=== PATIENT | female | born 1945 | race Caucasian/White ===

== ENCOUNTER 2023-06-04 16:46 | Inpatient (IN) | payer MEDICARE ==
[~2023-06-04] VITALS: Ht 154.9 cm; Wt 49.0 kg
[2023-06-04] MEDS ORDERED: SIMETHICONE PO (17:11)
[2023-06-04] MEDS ORDERED: PARO10TA86 PO (17:11)
[2023-06-04] MEDS ORDERED: NAPR-1164 PO (17:11)
[2023-06-04] MEDS ORDERED: VALS80TA2 PO (17:11)
[2023-06-04] MEDS ORDERED: MELA1TAB23 SL (17:11)
[2023-06-04] MEDS ORDERED: CLON0.5T4 PO (17:11)
[2023-06-04 17:13] LABS: BASOPHILS # (AUTO) 0.1 K/UL (0.0-0.2); BASOPHILS % (AUTO) 1.5 % (0.0-2.0); EOSINOPHILS # (AUTO) 0.1 K/uL (0.0-0.7); EOSINOPHILS % (AUTO) 0.7 % (0.0-7.0); HEMATOCRIT 46.5 % (31.2-41.9); HEMOGLOBIN 15.6 g/dL (10.9-14.3); LYMPHOCYTES # (AUTO) 1.4 K/uL (0.8-4.8); LYMPHOCYTES % (AUTO) 14.8 % (20.5-51.5); MEAN CORPUSCULAR HEMOGLOBIN 29.5 uug (24.7-32.8); MEAN CORPUSCULAR HGB CONC 34 g/dL (32.3-35.6); MONOCYTES # (AUTO) 0.8 K/uL (0.1-1.30); MONOCYTES % (AUTO) 7.9 % (0.0-11.0); NEUTROPHILS # (AUTO) 7.4 K/uL (1.8-8.9); NEUTROPHILS % (AUTO) 75.1 % (38.5-71.5); PLATELET COUNT (AUTO) 341 K/uL (179-408); RED BLOOD CELL COUNT(AUTO) 5.29 MIL/uL (3.63-4.92); RED CELL DISTRIBUTION WIDTH 14.5 % (12.3-17.7); WHITE BLOOD COUNT (AUTO) 9.8 K/uL (3.8-11.8)
[2023-06-04 17:18] LABS: DIFFERENTIAL COMMENT 1
[2023-06-04 17:22] LABS: CALCIUM 9.7 mg/dL (8.5-10.1); CARBON DIOXIDE 27 mmol/L (21-32); CHLORIDE 96 mmol/L (98-107); CREATININE 0.7 mg/dL (0.6-1.3); GLUCOSE 91 mg/dL (74-106); POTASSIUM 3.8 mmol/L (3.5-5.1); SODIUM SERUM 133 mmol/L (136-145); UREA NITROGEN, BLOOD 16 mg/dL (7-18)
[2023-06-04 17:30] LABS: ETHANOL < 3 MG/DL (0-10)
[2023-06-04 17:34] LABS: ALANINE AMINOTRANSFERASE 15 U/L (14-59); ALBUMIN 4.1 g/dL (3.4-5.0); ALKALINE PHOSPHATASE 66 U/L (50-136); ASPARTATE AMINOTRANSFERASE 18 U/L (15-37); BILIRUBIN,DIRECT 0.1 mg/dL (0.0-0.2); BILIRUBIN,TOTAL 0.5 mg/dL (0.2-1.0); TOTAL PROTEIN, SERUM 7.2 g/dL (6.4-8.2)
[2023-06-04 17:35] LABS: ACETAMINOPHEN < 2.0 ug/mL (10-30)
[2023-06-04 23:30] VITALS: BP 113/56; TEMP 98; O2SAT 98
[2023-06-05] MEDS ORDERED: MAGNESIUM HYDROXIDE 30 ML LIQUID UDC PO PRN (00:30)
[2023-06-05] MEDS ORDERED: MAG HYDROX/AL HYDROX/SIMETH 30 ML LIQUID UDC PO PRN (00:30)
[2023-06-05] MEDS ORDERED: LORAZEPAM 1 MG TABLET PO PRN (00:30)
[2023-06-05 08:36] VITALS: BP 106/58; TEMP 98; O2SAT 99
[2023-06-05] MEDS ORDERED: CLONAZEPAM 0.5 MG TABLET PO SCH (09:00)
[2023-06-05] MEDS: VALSARTAN 80 MG TABLET PO SCH ×2 (09:00→17:58)
[2023-06-05] MEDS: SERTRALINE HCL 50 MG TABLET PO SCH (10:30)
[2023-06-05] MEDS: NAPROXEN 500 MG TABLET PO SCH ×2 (10:33→18:10)
[2023-06-05 15:45] VITALS: BP 120/52; TEMP 98; O2SAT 98
[2023-06-05 20:03] VITALS: BP 114/48; TEMP 98.1; O2SAT 96
[2023-06-05] MEDS: DONEPEZIL 5 MG TABLET PO SCH (20:55)
[2023-06-05] MEDS: MEMANTINE HCL 5 MG TABLET PO SCH (20:55)
[2023-06-06 07:56] VITALS: BP 124/56; TEMP 98.2; O2SAT 98
[2023-06-06] MEDS: MEMANTINE HCL 5 MG TABLET PO SCH ×2 (10:03→20:25)
[2023-06-06] MEDS: SERTRALINE HCL 50 MG TABLET PO SCH (10:05)
[2023-06-06] MEDS: VALSARTAN 80 MG TABLET PO SCH (10:06)
[2023-06-06] MEDS: NAPROXEN 500 MG TABLET PO SCH ×2 (10:07→16:54)
[2023-06-06] MEDS: ACETAMINOPHEN 325 MG TABLET PO PRN (12:44)
[2023-06-06 15:14] VITALS: BP 131/61; TEMP 98.2; O2SAT 97
[2023-06-06 16:51] LABS: THYROID STIMULATING HORMONE 0.429 mIU/mL (0.358-3.740)
[2023-06-06 20:09] VITALS: BP 101/71; TEMP 98.1; O2SAT 98
[2023-06-06] MEDS: DONEPEZIL 5 MG TABLET PO SCH (20:25)
[2023-06-06] MEDS: TEMAZEPAM 7.5 MG CAPSULE PO PRN (22:38)
[2023-06-07] MEDS: CLONAZEPAM 0.5 MG TABLET PO PRN ×2 (00:31→12:49)
[2023-06-07 08:44] VITALS: BP 123/55; TEMP 98; O2SAT 96
[2023-06-07] MEDS: SERTRALINE HCL 50 MG TABLET PO SCH (09:07)
[2023-06-07] MEDS: NAPROXEN 500 MG TABLET PO SCH ×2 (09:08→16:04)
[2023-06-07] MEDS: MEMANTINE HCL 5 MG TABLET PO SCH ×2 (09:08→19:59)
[2023-06-07] MEDS: VALSARTAN 80 MG TABLET PO SCH (09:09)
[2023-06-07 15:15] VITALS: BP 135/63; TEMP 97.8; O2SAT 95
[2023-06-07] MEDS: ACETAMINOPHEN 325 MG TABLET PO PRN (19:59)
[2023-06-07] MEDS: DONEPEZIL 5 MG TABLET PO SCH (19:59)
[2023-06-07 20:33] VITALS: BP 130/55; TEMP 97.6; O2SAT 96
[2023-06-07] MEDS: TEMAZEPAM 7.5 MG CAPSULE PO PRN (21:19)
[2023-06-08 08:03] VITALS: BP 132/52; TEMP 97.7; O2SAT 99
[2023-06-08] MEDS: NAPROXEN 500 MG TABLET PO SCH ×2 (08:09→17:17)
[2023-06-08] MEDS: SERTRALINE HCL 50 MG TABLET PO SCH (08:10)
[2023-06-08] MEDS: MEMANTINE HCL 5 MG TABLET PO SCH ×2 (08:12→20:50)
[2023-06-08] MEDS: VALSARTAN 80 MG TABLET PO SCH (08:13)
[2023-06-08] MEDS: ACETAMINOPHEN 325 MG TABLET PO PRN ×2 (13:29→20:51)
[2023-06-08 16:19] VITALS: BP 156/83; TEMP 98; O2SAT 98
[2023-06-08 20:00] VITALS: BP 122/55; TEMP 97.9; O2SAT 98
[2023-06-08] MEDS: CLONAZEPAM 0.5 MG TABLET PO PRN (20:50)
[2023-06-08] MEDS: DONEPEZIL 5 MG TABLET PO SCH (20:51)
[2023-06-09] MEDS: NAPROXEN 500 MG TABLET PO SCH ×2 (08:17→16:48)
[2023-06-09] MEDS: MEMANTINE HCL 5 MG TABLET PO SCH ×2 (08:18→21:21)
[2023-06-09] MEDS: SERTRALINE HCL 50 MG TABLET PO SCH (08:18)
[2023-06-09] MEDS: VALSARTAN 80 MG TABLET PO SCH (08:19)
[2023-06-09 08:27] VITALS: BP 168/77; TEMP 98.1; O2SAT 98
[2023-06-09] MEDS: CLONAZEPAM 0.5 MG TABLET PO PRN (11:23)
[2023-06-09 16:48] VITALS: BP 136/71; TEMP 98; O2SAT 98
[2023-06-09 20:00] VITALS: BP 120/44; TEMP 98.1; O2SAT 90
[2023-06-09] MEDS: DONEPEZIL 5 MG TABLET PO SCH (21:22)
[2023-06-09] MEDS: TEMAZEPAM 7.5 MG CAPSULE PO PRN (21:22)
[2023-06-10] MEDS: BENZOCAINE/MENTH/CETYLPYRD LOZENGE MM PRN ×2 (00:25→05:27)
[2023-06-10 07:51] VITALS: BP 144/77; TEMP 98.4; O2SAT 99
[2023-06-10] MEDS ORDERED: CLONAZEPAM 0.5 MG TABLET PO PRN (08:30)
[2023-06-10] MEDS: VALSARTAN 80 MG TABLET PO SCH (08:31)
[2023-06-10] MEDS: MEMANTINE HCL 5 MG TABLET PO SCH ×2 (08:31→20:35)
[2023-06-10] MEDS: NAPROXEN 500 MG TABLET PO SCH ×2 (08:31→16:07)
[2023-06-10] MEDS: SERTRALINE HCL 50 MG TABLET PO SCH (08:32)
[2023-06-10 12:18] LABS: BASOPHILS % (AUTO) 0.6 % (0.0-2.0); EOSINOPHILS % (AUTO) 0.2 % (0.0-7.0); HEMATOCRIT 42.8 % (31.2-41.9); HEMOGLOBIN 14.5 g/dL (10.9-14.3); LYMPHOCYTES # (AUTO) 0.8 K/uL (0.8-4.8); MEAN CORPUSCULAR HEMOGLOBIN 29.5 uug (24.7-32.8); MEAN CORPUSCULAR HGB CONC 34 g/dL (32.3-35.6); MEAN CORPUSCULAR VOLUME 87.4 fL (75.5-95.3); MONOCYTES # (AUTO) 0.6 K/uL (0.1-1.30); MONOCYTES % (AUTO) 17.9 % (0.0-11.0); NEUTROPHILS # (AUTO) 1.9 K/uL (1.8-8.9); NEUTROPHILS % (AUTO) 57.3 % (38.5-71.5); PLATELET COUNT (AUTO) 253 K/uL (179-408); RED CELL DISTRIBUTION WIDTH 14.5 % (12.3-17.7); WHITE BLOOD COUNT (AUTO) 3.3 K/uL (3.8-11.8)
[2023-06-10 12:22] LABS: DIFFERENTIAL COMMENT 1
[2023-06-10 12:38] LABS: ALBUMIN 3.7 g/dL (3.4-5.0); BILIRUBIN,TOTAL 0.3 mg/dL (0.2-1.0); CREATININE 0.6 mg/dL (0.6-1.3); MAGNESIUM 1.9 mg/dL (1.8-2.4); PHOSPHOROUS 2.6 mg/dL (2.5-4.9); POTASSIUM 4.2 mmol/L (3.5-5.1); TOTAL PROTEIN, SERUM 6.6 g/dL (6.4-8.2)
[2023-06-10 13:00] LABS: EOSINOPHILS % (MANUAL) 1 % (0-8); LYMPHOCYTES % (MANUAL) 24 % (20-40); MONOCYTES % (MANUAL) 7 % (2-10); NEUTROPHILS % (MANUAL) 68 % (42-75)
[2023-06-10 13:01] LABS: ANISOCYTOSIS 1+; PLATELET ESTIMATE ADEQUATE
[2023-06-10 16:14] VITALS: BP 133/66; TEMP 98.4; O2SAT 97
[2023-06-10 20:10] VITALS: BP 136/72; TEMP 98.3; O2SAT 96
[2023-06-10] MEDS: DONEPEZIL 5 MG TABLET PO SCH (20:35)
[2023-06-10] MEDS: TEMAZEPAM 7.5 MG CAPSULE PO PRN (22:11)
[2023-06-11 08:00] VITALS: BP 149/77; TEMP 97.9; O2SAT 98
[2023-06-11] MEDS: MEMANTINE HCL 5 MG TABLET PO SCH ×2 (09:37→20:16)
[2023-06-11] MEDS: VALSARTAN 80 MG TABLET PO SCH (09:38)
[2023-06-11] MEDS: NAPROXEN 500 MG TABLET PO SCH ×2 (09:38→17:52)
[2023-06-11] MEDS: SERTRALINE HCL 50 MG TABLET PO SCH (09:38)
[2023-06-11 16:00] VITALS: BP 190/80; TEMP 97.5; O2SAT 99
[2023-06-11] MEDS ORDERED: hydrALAZINE HCL 25 MG TABLET PO PRN (17:45)
[2023-06-11] MEDS: hydrALAZINE HCL 10 MG TABLET PO PRN ×2 (18:00→22:41)
[2023-06-11 19:43] VITALS: BP 156/76; TEMP 97.5; O2SAT 97
[2023-06-11] MEDS: DONEPEZIL 5 MG TABLET PO SCH (20:16)
[2023-06-11] MEDS: HYDROXYZINE PAMOATE 25 MG CAPSULE PO PRN (21:25)
[2023-06-11] MEDS: TEMAZEPAM 7.5 MG CAPSULE PO PRN (22:41)
[2023-06-12 08:00] VITALS: BP 151/67; TEMP 98; O2SAT 98
[2023-06-12] MEDS: MEMANTINE HCL 5 MG TABLET PO SCH ×2 (08:56→20:21)
[2023-06-12] MEDS: MECLIZINE HCL 12.5 MG TABLET PO PRN (08:56)
[2023-06-12] MEDS: SERTRALINE HCL 50 MG TABLET PO SCH ×2 (08:56→17:57)
[2023-06-12] MEDS: NAPROXEN 500 MG TABLET PO SCH ×2 (08:57→17:57)
[2023-06-12] MEDS: VALSARTAN 80 MG TABLET PO SCH (08:57)
[2023-06-12] MEDS: hydrALAZINE HCL 10 MG TABLET PO PRN (17:33)
[2023-06-12] MEDS: HYDROXYZINE PAMOATE 25 MG CAPSULE PO PRN (17:33)
[2023-06-12] MEDS: DONEPEZIL 5 MG TABLET PO SCH (20:21)
[2023-06-12 20:51] VITALS: BP 154/74; TEMP 98.1; O2SAT 99
[2023-06-13 08:25] VITALS: BP 186/82; TEMP 98.2; O2SAT 98
[2023-06-13 08:28] VITALS: BP 186/82
[2023-06-13] MEDS: SERTRALINE HCL 50 MG TABLET PO SCH (08:28)
[2023-06-13] MEDS: MECLIZINE HCL 12.5 MG TABLET PO PRN ×2 (08:28→13:57)
[2023-06-13] MEDS: VALSARTAN 80 MG TABLET PO SCH (08:28)
[2023-06-13] MEDS: MEMANTINE HCL 5 MG TABLET PO SCH (08:28)
[2023-06-13] MEDS: NAPROXEN 500 MG TABLET PO SCH (08:28)
== END 2023-06-13 17:01 | DRG 885 ==
LOC: ER 16:50 → GPS 22:03
PROVIDERS: ADMIT Psychiatry & Neurology Psychiatry; ATTEND Internal Medicine
DX: F33.2 Major depressive disorder, recurrent severe without psychotic features (principal); R45.851 Suicidal ideations; F03.94 Unspecified dementia, unspecified severity, with anxiety; F03.918 Unspecified dementia, unspecified severity, with other behavioral disturbance; T42.4X2D Poisoning by benzodiazepines, intentional self-harm, subsequent encounter; F60.3 Borderline personality disorder; F60.81 Narcissistic personality disorder; M62.81 Muscle weakness (generalized); F13.10 Sedative, hypnotic or anxiolytic abuse, uncomplicated; I10 Essential (primary) hypertension; Z63.4 Disappearance and death of family member; M19.90 Unspecified osteoarthritis, unspecified site; Z91.81 History of falling; R27.9 Unspecified lack of coordination; R51.9 Headache, unspecified
CPT/HCPCS: 36415; 70030-TC; 82747; 83735; 83921; 84100; 84443; 85014; 85025; 93005; G0480; J8597